=== PATIENT | male | born 1980 | race Caucasian/White ===

== ENCOUNTER 2019-05-08 05:23 | Emergency (ER) | payer OTHER, BC ==
[~2019-05-08] VITALS: Ht 170.2 cm; Wt 98.0 kg
[2019-05-08 05:58] VITALS: BP 126/86
== END 2019-05-08 06:15 | disposition home or self-care (01) | DRG 605 ==
LOC: ED 05:23
PROC: 0HQ1XZZ Repair Face Skin, External Approach (ICD-10-PCS; principal; 2019-05-08)
DX: S01.81XA Laceration without foreign body of other part of head, initial encounter (principal); W22.8XXA Striking against or struck by other objects, initial encounter; Y93.89 Activity, other specified; Y92.89 Other specified places as the place of occurrence of the external cause; Y99.0 Civilian activity done for income or pay